=== PATIENT | male | born 1965 | race Caucasian/White ===

== ENCOUNTER → 2021-04-17 12:31 | Outpatient (CLI) | payer MEDICAID ==
--- NOTE | ~2021-04-17 | EC ---
PATIENT:LEYDI EDWARDS DATE OF SERVICE: 04/17/21 SEX: M MEDICAL RECORD: [id number] DATE OF : [birth year] LOCATION:[facility] AGE OF PATIENT: 55 ADMISSION DATE: 04/17/21 REFERRING PHYSICIAN: INTERPRETING PHYSICIAN: CAIN BRYANT MD ECHOCARDIOGRAM REPORT ECHO CHARGES 4 ECHO COMPLETE Date: 04/17/21 CLINICAL DIAGNOSIS: ASSESS EF, CARDIOMYOPATHY ECHOCARDIOGRAPHIC MEASUREMENTS (adult normal given) AC root (d.<3.7cm) 3.6 cm LV Septum d (<1.2 cm> 1.0 cm Valve Excursion 1.1 cm LV Septum (systole) 1.4 cm Left Atria (s.<4.0cm> 4.7 cm LVPW d(<1.2cm) 0.9 cm RV (d.<2.3cm) 3.2 cm LVPW (sytole) 1.3 cm LV diastole(<5.6CM) 7.2 cm MV E-F(>70mm/sec) cm LV systole 5.8 cm LVOT Diameter 2.3 cm MV exc.(>10mm) 1.3 cm Est.ejection fraction (50-75%) % DOPPLER: LVIT cm/sec A 100 cm/sec E 61 cm/sec LA cm/sec RVSP 28 mmHg LVOT 70 cm/sec AOP1/2T m/s Asc. Ao 127 cm/sec RVOT 55 cm/sec RA cm/sec PA 85 cm/sec AV Gradient Peak 6.4 mmHg AV Mean 3.7 mmHg AV Area 2.3 cm MV Gradient Peak 3.4 mmHg MV Mean 1.6 mmHg MV Area cm COMMENTS: C Architect: Ana Rosa [employer] Technician: 3 Dr. Gonzalez TAPE# Pericardial Effusion N DATE OF SERVICE: Adequate 2D, color flow imaging, spectral Doppler, and M-Mode. FINDINGS: No LVH. LV internal dimension is dilated. LV is mildly globally hypokinetic with reduced EF of 40% to 45%. Aortic valve is tricuspid. No evidence of stenosis by Doppler interrogation. Left atrium is dilated at 4.7 cm. Mitral valve shows no prolapse. Mild MR. Ride side is grossly normal. Trace TR. ECHOCARDIOGRAM REPORT [id number] LEYDI EDWARDS TRANSINT:[id number] Voice Confirmation ID: [id number] DOCUMENT ID: [id number] CAIN BRYANT MD CC: [id number] DICTATION DATE: 04/18/21 1508 [employer]INESI[facility]Y [employer]: 04/18/211921 DEP CLI 04/17/21 [address] [id number] [place] [address]
== END | disposition home or self-care (01) ==
LOC: D.HCCECHO 12:31
PROVIDERS: ATTEND Internal Medicine Interventional Cardiology
DX: I25.10 Atherosclerotic heart disease of native coronary artery without angina pectoris (principal)